=== PATIENT | male | born 1980 | race Caucasian/White ===

== ENCOUNTER 2017-09-26 10:19 | Inpatient (IN) | payer OTHER ==
[~2017-09-26] VITALS: Ht 177.8 cm; Wt 95.3 kg
[2017-09-26] MEDS ORDERED: KETOROLAC TROMETHAMINE 30 MG/ML VIAL IV STA (10:24)
[2017-09-26] MEDS ORDERED: SODIUM CHLORIDE 0.9% 1000ML 1,000 ML IV ONE (10:30)
[2017-09-26] MEDS ORDERED: DICYCLOMINE HCL 20 MG/2 ML VIAL IM ONE (10:30)
--- NOTE | 2017-09-26 11:13 | Diagnostic Imaging Report ---
PROCEDURE: CT ABDOMEN AND PELVIS WITHOUT CONTRAST TECHNIQUE: The abdomen and pelvis were scanned utilizing a multidetector helical scanner from the diaphragm to the lesser trochanter after the oral administration of water. No intravenous contrast was administered per renal stone protocol. Coronal and sagittal multiplanar reformations were obtained. COMPARISON: None. INDICATIONS: kidney stone FINDINGS: ABSENCE OF INTRAVENOUS CONTRAST DECREASES SENSITIVITY FOR DETECTION OF FOCAL LESIONS AND VASCULAR PATHOLOGY. LOWER THORAX: Subsegmental atelectasis in the dependent portions of the lower lobes. No pleural or pericardial effusion.. HEPATOBILIARY: No focal hepatic lesions. No intrahepatic biliary ductal dilatation. The gallbladder is unremarkable. SPLEEN: No splenomegaly. PANCREAS: No focal masses or ductal dilatation. ADRENALS: No adrenal nodules. KIDNEYS/URETERS: Innumerable bilateral small nonobstructing renal calculi measuring up to 4 mm in the left lower pole and 6 mm in the interpolar right kidney. No hydronephrosis. No gross renal mass lesions though evaluation is limited without intravenous contrast the PELVIC ORGANS/BLADDER: 2 mm and 5 mm calculi within the dependent portion of the urinary bladder (series 3 image 163). 8-9 mm calcification within the central prostate (series 3 image 184). PERITONEUM / RETROPERITONEUM: No ascites. No pneumoperitoneum. LYMPH NODES: No pelvic sidewall, retroperitoneal, or mesenteric lymphadenopathy. VESSELS: Limited evaluation without intravenous contrast. The abdominal aorta is non-aneurysmal. GI TRACT: The large bowel shows no evidence of distention or wall thickening. There are a few diverticula scattered along the sigmoid colon without wall thickening or adjacent inflammatory change. The appendix is normal. There is no small bowel dilatation to suggest obstruction. BONES AND SOFT TISSUES: No focal soft tissue abnormalities. The no osseous destructive lesions. IMPRESSION: 8-9 mm calculus within the central aspect of the prostate likely lies within the prostatic urethra given the reported clinical history of penile pain with attempts at urination. Additional 2 and 5 mm calculi within the dependent portion of the urinary bladder. Multiple bilateral nonobstructing renal calculi measuring up to 4 mm on the left and 6 mm on the right. Dictated by: Rebel Gamble M.D. on 09/26/2017 at 11:18 Electronically approved by: Rebel Gamble M.D. on 09/26/2017 at 11:18
[2017-09-26 11:18] LABS: BASOPHILS % 0.4 % (0.0-1.0); EOSINOPHILS % 0.2 % (0.0-6.0); HEMOGLOBIN 19.6 g/dL (14.0-18.0); MEAN CORPUSCULAR HEMOGLOBIN 30.2 pg (28-32); MEAN CORPUSCULAR HGB CONC 34.4 g/dL (31-35); MONOCYTES # (AUTO) 0.5 (0.2-0.8); MONOCYTES % 5.2 % (4.4-11.3); NEUTROPHILS # (AUTO) 8.4 (2.1-6.9); NEUTROPHILS % 83.6 % (38.7-80.0); PLATELET COUNT 194 x10e3/uL (140-360); RED BLOOD COUNT 6.48 x10e6/uL (4.3-5.7); RED CELL DISTRIBUTION WIDTH 13.3 % (11.7-14.4)
[2017-09-26 11:39] LABS: ALBUMIN 4.2 g/dL (3.5-5.0); ALBUMIN/GLOBULIN RATIO 1.3 (0.8-2.0); CALCIUM 9.4 mg/dL (8.4-10.2); CREATININE, SERUM 1.32 mg/dL (0.72-1.25)
[2017-09-26] MEDS ORDERED: MORPHINE SULFATE 2 MG/ML SYR IV PRN (13:00)
[2017-09-26] MEDS ORDERED: ONDANSETRON HCL INJ 2 MG/ML VIAL IV PRN (13:00)
[2017-09-26] MEDS ORDERED: ONDANSETRON HCL INJ 2 MG/ML VIAL ONE (14:32)
[2017-09-26] MEDS ORDERED: LIDOCAINE HCL 2% LOCAL INJ 5 ML SDV VIAL INJ ONE (14:32)
[2017-09-26] MEDS ORDERED: DEXAMETHASONE SOD PHOS INJ 4 MG/ML VIAL ONE (14:32)
[2017-09-26] MEDS ORDERED: DESFLURANE 240 ML BTL INH ONE (14:32)
[2017-09-26] MEDS ORDERED: CEFTRIAXONE SOD 1 GM VIAL ONE (14:32)
[2017-09-26] MEDS ORDERED: PROPOFOL IV EMULSION 10 MG/ML 20 ML VIAL ONE (14:32)
[2017-09-26] MEDS: MORPHINE SULFATE INJ 4 MG/ML INJ IV PRN ×2 (14:42→23:54)
[2017-09-26] MEDS ORDERED: MIDAZOLAM HCL 2 MG/2 ML VIAL ONE (15:59)
[2017-09-26] MEDS ORDERED: FENTANYL CITRATE/PF 100MCG/2 ML INJ ONE (15:59)
[2017-09-26] MEDS: SODIUM CHLORIDE 0.9% 1000ML 1,000 ML IV SCH ×2 (18:53→23:10)
[2017-09-26] MEDS ORDERED: IOPAMIDOL 300MG/ML 50ML INFUS..BTL IV ONE (20:24)
[2017-09-26 22:36] VITALS: BP 147/87
[2017-09-26 23:17] VITALS: BP 151/91
[2017-09-27 04:00] VITALS: BP 152/73
[2017-09-27] MEDS: SODIUM CHLORIDE 0.9% 1000ML 1,000 ML IV SCH ×2 (05:02→21:30)
[2017-09-27 05:50] LABS: BASOPHILS % 0.1 % (0.0-1.0); HEMATOCRIT 53.7 % (38.2-49.6); HEMOGLOBIN 18.4 g/dL (14.0-18.0); LYMPHOCYTES # (AUTO) 0.7 (1.0-3.2); LYMPHOCYTES % 9.1 % (18.0-39.1); MEAN CORPUSCULAR HEMOGLOBIN 30.2 pg (28-32); MEAN CORPUSCULAR HGB CONC 34.3 g/dL (31-35); MONOCYTES # (AUTO) 0.4 (0.2-0.8); MONOCYTES % 4.6 % (4.4-11.3); NEUTROPHILS # (AUTO) 6.7 (2.1-6.9); NEUTROPHILS % 85.8 % (38.7-80.0); PLATELET COUNT 188 x10e3/uL (140-360); RED CELL DISTRIBUTION WIDTH 13.1 % (11.7-14.4)
[2017-09-27] MEDS: MORPHINE SULFATE INJ 4 MG/ML INJ IV PRN (06:08)
[2017-09-27 06:16] LABS: ANION GAP 16.3 mmol/L (8-16); BLOOD UREA NITROGEN 14 mg/dL (7-26); BUN/CREATININE RATIO 12 (6-25); CALCIUM 8.8 mg/dL (8.4-10.2); CARBON DIOXIDE 23 mmol/L (22-29); CHLORIDE 104 mmol/L (98-107); CREATININE, SERUM 1.14 mg/dL (0.72-1.25); EST GLOMERULAR FILTRATION RATE > 60 ML/MIN (60-); GLUCOSE 114 mg/dL (74-118); POTASSIUM 4.3 mmol/L (3.5-5.1); SODIUM 139 mmol/L (136-145)
[2017-09-27 07:55] VITALS: BP 152/73
[2017-09-27 08:06] VITALS: BP 141/71
--- NOTE | 2017-09-27 09:56 | History and Physical ---
CHIEF COMPLAINT: Recurrent kidney stone with obstruction. HISTORY: Patient is a 37-year-old male with history of calcium oxalate stone. The patient came to the emergency room with penile pain. The patient is now passing a huge stone. He is obstructed, however. He was not able to urinate as well. The patient is a patient to Dr. Flaquito Barrett. PAST MEDICAL HISTORY: Recurrent kidney stone. PAST SURGICAL HISTORY: Stone management. SOCIAL HISTORY: Patient does not smoke or use alcohol. No recreational drugs. ALLERGIES: NO KNOWN ALLERGIES. HOME MEDICATIONS: None. PHYSICAL EXAMINATION VITAL SIGNS: Temperature is 98, blood pressure 141/71, pulse rate 77, and respirations 18. GENERAL: The patient is not acute distress. He is awake. HEENT: Normocephalic, atraumatic, anicteric. NECK: Supple grossly. PULMONARY: Diminished breath sounds. CARDIOVASCULAR: S1 and S2. Regular rate and rhythm. ABDOMEN: Soft, unremarkable. EXTREMITIES: No cyanosis or edema. NEURO: No gross focal deficit. LABORATORY: Sodium is 139, potassium 4.3, chloride 104, bicarb 23, BUN 14, creatinine 1.1, and glucose is 114. WBC 7.7, hemoglobin is 18.4, hematocrit 53.7, and platelets are 188,000. IMPRESSION: Recurrent kidney stone with obstruction. PLAN: Stone management. Dr. Flaquito Barrett saw the patient. Continue with antibiotics, IV fluids, and pain control. Job#: [id number] CF
[2017-09-27 11:33] LABS: CLARITY,URINE SL CLOUDY (CLEAR); COLOR,URINE YELLOW (YELLOW); KETONES,URINE TRACE (NEGATIVE); LEUKOCYTE ESTERASE ,URINE TRACE (NEGATIVE); NITRITE,URINE NEGATIVE (NEGATIVE)
[2017-09-27 11:34] LABS: BILIRUBIN,URINE NEGATIVE (NEGATIVE); PROTEIN,URINE DIPSTICK NEGATIVE (NEGATIVE); URINE UROBILINOGEN 0.2 mg/dL (0.2 - 1)
[2017-09-27 11:48] LABS: BACTERIA,URINE FEW /HPF; EPITHELIAL CELLS,URINE FEW /LPF
[2017-09-27 12:48] VITALS: BP 138/78
[2017-09-27 16:35] VITALS: BP 141/81
[2017-09-27 20:00] VITALS: BP 158/98
[2017-09-28] VITALS: BP 147/93
[2017-09-28 03:56] VITALS: BP 147/93
[2017-09-28 04:00] VITALS: BP 156/102
[2017-09-28 08:00] VITALS: BP 156/102
[2017-09-28 08:03] VITALS: BP 137/88
[2017-09-28 12:00] VITALS: BP 161/99
[2017-09-28] MEDS ORDERED: BACTRIM DS TAB1 EACH PO (12:41)
[2017-09-28] MEDS ORDERED: TYLENOL WITH C1 EACH PO (12:41)
[2017-11-01] MEDS ORDERED: HYDROCHLOROTHIA25 MG PO (10:10)
--- NOTE | 2017-11-10 18:11 | Discharge Summary ---
FINAL DIAGNOSES 1. Urinary bladder stone and kidney stone. 2. Status post cystolithotripsy done by Dr. Flaquito Barrett for stone management. SUMMARY: Patient is a pleasant 37-year-old male with bilateral kidney stone. The patient is status post ureteral lithotripsy of the stone. He did better. His creatinine is slightly elevated, but much improved with IV fluid rehydration. Patient was stable. Pain controlled. Patient was slightly dehydrated overall, but with IV fluid rehydration, he did better. His pain better controlled. Mills catheter was subsequently discontinued. The patient voided. He will follow up with Dr. Flaquito Barrett as an outpatient. Please review Dr. Flaquito Barrett's prescription plan for the patient. Job#: [id number] ADOLFO
--- NOTE | 2017-11-21 15:02 | Operative Report ---
DATE OF PROCEDURE: September 26, 2017 PREOPERATIVE DIAGNOSES 1. Obstructing bladder stone. 2. Acute renal failure. POSTOPERATIVE DIAGNOSES 1. Obstructing bladder stone. 2. Acute renal failure. PROCEDURES PERFORMED 1. Cystourethroscopy with cystolitholapaxy of a large bladder stone (separate procedure performed for the diagnosis of bladder stone that was done with a holmium laser). 2. Cystourethroscopy with bilateral ureteral catheterization and retrograde ureteropyelography (separate procedure performed for the acute renal failure). 3. Interpretation of retrograde ureteropyelography. 4. Supervision of fluoroscopy. No radiologist present. ANESTHESIA: General. COMPLICATIONS: None. CLINICAL SUMMARY: Cody Brito is a 37-year-old man who has failed to follow up for a number of years. He is a recurrent stone former. The patient has been able to successfully pass rather significantly sized stones. The patient, however, in this case had difficulty urinating. He presented to the emergency room where he was found to have nephrolithiasis in addition to a bladder stone that is stuck and preventing him from urinating. He is brought emergently to the operating room for the above procedures. He is aware of the risks of bleeding, infection, injury to adjacent structures, need for additional procedures and elected to proceed. OPERATIVE PROCEDURE IN DETAIL: Informed consent was verified. Cody Brito was properly identified, taken to the operating room and placed on the cystoscopy table in the supine position. Anesthesia was uneventfully begun. The patient was then carefully and gently repositioned in dorsal lithotomy position with all pressure points well padded. His genitalia were prepared and draped in the usual sterile fashion. The 22.5-[place] cystourethroscope sheath with visual obturator in place was atraumatically inserted in the patient's urethra. It was guided down the unremarkable urethra, through a normal sphincteric region into the prostate bed. The prostate bed was blocked by a rather significant, large, multispiculated bladder stone. The stone was pushed back into the bladder, and we performed holmium laser lithotripsy as we broke it into multiple smaller stones and then we evacuated it. The prostatic urethra was rather significantly inflamed as a result of having this bladder stone stuck within it. A ureteral catheter was used to cannulate each ureter, and retrograde ureteropyelograms were performed. Interpretation of retrograde ureteropyelography: Contrast was instilled in retrograde fashion bilaterally. There was no hydronephrosis. Unobstructed drainage was observed bilaterally fluoroscopically. There were multiple small stones present bilaterally corresponding to the stones noted on the CT scan. The smallest of the stones could not be well visualized. The patient's bladder was drained. The patient was uneventfully reversed from anesthesia and taken to the recovery room in stable condition. There were no complications to the procedure. The patient tolerated the procedure well. Estimated blood loss was minimal. We will follow the patient up as an inpatient and then eventually bring the patient to the operating room electively for management of his nephrolithiasis. Job#: [id number]
--- OUTSIDE RECORDS SUMMARY | 2017-11-23 00:02 | XMS REPORT ---
[facility] Address Unknown Phone Unavailable Care Team Providers Care Fisher Eel Name Role Phone MANDIE MCGUIRE Unavailable Unavailable HA HARO Unavailable Unavailable Problems This patient has no known problems. Allergies, Adverse Reactions, Alerts This patient has no known allergies or adverse reactions. Medications This patient has no known medications. Results Test Description Test Time Test Comments Text Results Atomic Results Result Comments ABDOMEN-1VIEW (KUB) 2017-11-03 10:18:00 [place] [address] Patient Name: REHANA SCHNEIDER MR #: [id number] : 1980 Age/Sex: 37/M Req #: [id number] Adm Physician: Ordered by: MANDIE MCGUIRE MD Report #: [id number] Location: OR Room/Bed: Procedure: [id number] DX/ABDOMEN-1VIEW (KUB) Exam Date: 11/03/17 Exam Time: 0940 REPORT STATUS: Signed PROCEDURE: X-RAY ABDOMEN - KUB COMPARISON: CT Abdomen/Pelvis 09/26/17. INDICATIONS: PREOPERATIVE XRAY FOR KIDNEY STONE SURGERY FINDINGS: Multiple bilateral punctate renal stones are noted, better characterized on CT from 09/26/17, largest measuring up to 6 mm in the right upper kidney and 4 mm in the left lower kidney. No stones are noted overlying the expected location of the ureters. Pelvic phleboliths are noted. There is a non-obstructed bowel-gas pattern. There are no acute osseous abnormalities. The lung bases are clear. CONCLUSION: Bilateral renal stones, measuring up to 6 mm on the right and 4 mm on the left. Dictated by: LISE CASTELLANOS M.D. on at 10:18 Electronically approved by: LISE CASTELLANOS M.D. on 2017 at 10:18 Dictated By: LISE CASTELLANOS MD [id number] Transcribed By: ROCKY on 11/03/17 1018 COPY TO: MANDIE MCGUIRE MD CT ABDOMEN/PELVIS WO 2017-09-26 11:18:00 [place] [address] Patient Name: REHANA SCHNEIDER MR #: [id number] : 1980 Age/Sex: 37/M Req #: [id number] Adm Physician: Ordered by: HA HARO MD Report #: [id number] Location: ER Room/Bed: __ Procedure: [id number] CT/CT ABDOMEN/PELVIS WO Exam Date: 09/26/17 Exam Time: 1045 REPORT STATUS: Signed PROCEDURE: CT ABDOMEN AND PELVIS WITHOUT CONTRAST TECHNIQUE: The abdomen and pelvis were scanned utilizing a multidetector helical scanner from the diaphragm to the lesser trochanter after the oral administration of water. No intravenous contrast was administered per renal stone protocol. Coronal and sagittal multiplanar reformations were obtained. COMPARISON: None. INDICATIONS: kidney stone FINDINGS: ABSENCE OF INTRAVENOUS CONTRAST DECREASES SENSITIVITY FOR DETECTION OF FOCAL LESIONS AND VASCULAR PATHOLOGY. LOWER THORAX: Subsegmental atelectasis in the dependent portions of the lower lobes. No pleural or pericardial effusion.. HEPATOBILIARY: No focal hepatic lesions. No intrahepatic biliary ductal dilatation. The gallbladder is unremarkable. SPLEEN: No splenomegaly. PANCREAS: No focal masses or ductal dilatation. ADRENALS: No adrenal nodules. KIDNEYS/URETERS: Innumerable bilateral small nonobstructing renal calculi measuring up to 4 mm in the left lower pole and 6 mm in the interpolar right kidney. No hydronephrosis. No gross renal mass lesions though evaluation is limited without intravenous contrast the PELVIC ORGANS/ BLADDER: 2 mm and 5 mm calculi within the dependent portion of the urinary bladder (series 3 image 163). 8-9 mm calcification within the central prostate (series 3 image 184). PERITONEUM / RETROPERITONEUM: No ascites. No pneumoperitoneum. LYMPH NODES: No pelvic sidewall, retroperitoneal, or mesenteric lymphadenopathy. VESSELS: Limited evaluation without intravenous contrast. The abdominal aorta is non-aneurysmal. GI TRACT: The large bowel shows no evidence of distention or wall thickening. There are a few diverticula scattered along the sigmoid colon without wall thickening or adjacent inflammatory change. The appendix is normal. There is no small bowel dilatation to suggest obstruction. BONES AND SOFT TISSUES: No focal soft tissue abnormalities. The no osseous destructive lesions. IMPRESSION: 8-9 mm calculus within the central aspect of the prostate likely lies within the prostatic urethra given the reported clinical history of penile pain with attempts at urination. Additional 2 and 5 mm calculi within the dependent portion of the urinary bladder. Multiple bilateral nonobstructing renal calculi measuring up to 4 mm on the left and 6 mm on the right. Dictated by: Dev Kelly M.D. on 2017 at 11:18 Electronically approved by: Dev Kelly M.D. on 09/26/2017 at 11:18 Dictated By: DEV KELLY MD [id number] Transcribed By: ROCKY on 09/26/17 1118 COPY TO: HA HARO MD
== END 2017-09-28 13:42 | disposition home or self-care (01) | DRG 694 ==
LOC: ER 10:19 → ERHOLD 12:56 → MED/SURG3 19:37
PROVIDERS: ADMIT Internal Medicine; ATTEND Internal Medicine
PROC: 0TCB8ZZ Extirpation of Matter from Bladder, Via Natural or Artificial Opening Endoscopic (ICD-10-PCS; principal; 2017-09-26 21:00)
DX: N20.2 Calculus of kidney with calculus of ureter (principal); N17.9 Acute kidney failure, unspecified; R33.9 Retention of urine, unspecified; D75.1 Secondary polycythemia
CPT/HCPCS: 36415; 74176; 74420; 80048; 80053; 81001; 83970; 84550; 85025; 87086; 88300; 96361; 99284; J0500; J0696; J1100; J1885; J2001; J2250; J2270; J2405; J7030

== ENCOUNTER → 2017-11-03 | Day surgery (SDC) | payer OTHER ==
[~2017-11-03] MED LIST: BACTRIM DS TAB1 EACH PO; CEFTRIAXONE SOD 1 GM VIAL ONE; DEXAMETHASONE SOD PHOS INJ 4 MG/ML VIAL ONE; FENTANYL CITRATE/PF 100MCG/2 ML INJ ONE; GLYCOPYRROLATE INJ 1MG/ 5 ML SYR ONE; HYDROCHLOROTHIA25 MG PO; LIDOCAINE HCL 2% LOCAL INJ 5 ML SDV VIAL INJ ONE; MIDAZOLAM HCL 2 MG/2 ML VIAL ONE; ONDANSETRON HCL INJ 2 MG/ML VIAL ONE; POTASSIUM CITR10 MEQ PO; PROPOFOL IV EMULSION 10 MG/ML 20 ML VIAL ONE; SEVOFLURANE INHAL SOLN 250 ML PEN BTL ONE; TYLENOL WITH C1 EACH PO
[2017-11-03 12:30] VITALS: BP 134/89
--- NOTE | 2017-11-07 12:18 | Diagnostic Imaging Report ---
PROCEDURE:X-RAY ABDOMEN - KUB COMPARISON:CT Abdomen/Pelvis 09/26/17. INDICATIONS:PREOPERATIVE XRAY FOR KIDNEY STONE SURGERY FINDINGS: Multiple bilateral punctate renal stones are noted, better characterized on CT from 09/26/17, largest measuring up to 6 mm in the right upper kidney and 4 mm in the left lower kidney. No stones are noted overlying the expected location of the ureters. Pelvic phleboliths are noted. There is a non-obstructed bowel-gas pattern. There are no acute osseous abnormalities. The lung bases are clear. CONCLUSION: Bilateral renal stones, measuring up to 6 mm on the right and 4 mm on the left. Dictated by: LISE CASTELLANOS M.D. on 11/03/2017 at 10:18 Electronically approved by: LISE CASTELLANOS M.D. on 11/03/2017 at 10:18
--- OUTSIDE RECORDS SUMMARY | 2017-11-23 07:58 | XMS REPORT | Continuity of Care Document ---
Author Author [facility] Organization [facility] Address [address] [place] [address] Phone Unavailable Care Team Providers Care Upholstery Tech Name Role Phone MANDIE MCGUIRE MD PCP Insurance Providers Guarantor Cody Schneider Address [address] [place] [address] Email [email or web address] Payer Miscellaneous Indemnity Policy Number [id number] Subscriber's Name Cody Schneider Relationship 18 Self / Same As Patient Effective Date 16 Advance Directives Directive Response Recorded Date/Time Does the patient have an advance directive? No 09/26/17 11:12pm If yes, is advance directive on file with [facility]? No 09/26/17 11:12pm If not on file with [facility] will patient provide a copy? No 09/26/17 11:12pm Do you have a Directive to Physician? No 09/26/17 11:30am Do you have a Medical Power of Kennel Helper? No 09/26/17 11:30am Do you have an out of hospital Do Not Resuscitate Order? No 09/26/17 11:30am Do you have any special needs we should be aware of? U 09/26/17 11:31am Do you have a support person here with you today? No 09/26/17 11:31am Did patient receive Notice of Privacy Practices? Yes 09/26/17 11:31am Did patient receive patient rights and responsibilities? Yes 09/26/17 11:31am Problems Medical Problem Onset Date Status Recurrent kidney stones Unknown Medications Current Home Medications Medication Dose Units Route Directions Days Qty Instructions Start Date Acetaminophen With Codeine (Tylenol With Codeine #3 Tablet) 1 Each Tablet 300 Mg Oral Every 4 Hours Sulfamethoxazole/Trimethoprim (Bactrim Ds Tablet) 1 Each Tablet 1 Tab Oral Twice A Day 60 Tab Social History Smoking Status Start Date Stop Date Never Smoker Hospital Discharge Instructions No hospital discharge instruction information available. Plan of Care Discharge Date 09/28/17 1:42pm Disposition HOME, SELF-CARE Instructions/Education Provided Kidney Stones Prescriptions See Medication Section Additional Instructions/Education REGULAR DIET ACTIVITIES TOLERATED FOLLOW UP WITH DR. UGALDE IN 1-2 WEEKS Functional Status Query Response Date Recorded Assistive Devices None September 26, 2017 11:17pm Ambulation Ability Independent September 26, 2017 11:17pm Toileting Ability Minimum Assistance September 28, 2017 9:00am Allergies, Adverse Reactions, Alerts No known allergies. Immunizations No immunization information available. Vital Signs Acute Vital Signs Vital Response Date/Time Temperature (Fahrenheit) 98.0 degrees F (97.6 - 99.5) 09/28/2017 12:00pm Pulse Pulse Rate (adult) 81 bpm (60 - 90) 09/28/2017 12:00pm Respiratory Rate 20 bpm (12 - 24) 09/28/2017 12:00pm Blood Pressure 161/99 mm Hg 09/28/2017 12:00pm Height 5 ft 10 in 09/26/2017 10:24am Weight 210 lb 09/26/2017 10:24am Body Mass Index 30.1 kg/m^2 09/26/2017 11:12pm Results Laboratory Results Test Name Result Units Flags Reference Collection Date/Time Result Date/ Time Comments White Blood Count 7.77 x10e3/uL 4.8-10.8 09/27/2017 5:14am 09/27/2017 5 :59am Red Blood Count 6.10 x10e6/uL H 4.3-5.7 09/27/2017 5:1409/27/2017 5: 59am Hemoglobin 18.4 g/dL H 14.0-18.0 09/27/2017 5:09/27/2017 5:59am Hematocrit 53.7 % H 38.2-49.6 09/27/2017 5:09/27/2017 5:59am Mean Corpuscular Volume 88.0 fL 81-99 09/27/2017 5:09/27/2017 5: 59am Mean Corpuscular Hemoglobin 30.2 pg 28-32 09/27/2017 5:09/27/2017 5:59am Mean Corpuscular Hemoglobin Concent 34.3 g/dL 31-35 09/27/2017 5:09/27/2017 5:59am Red Cell Distribution Width 13.1 % 11.7-14.4 09/27/2017 5:2017 5:59am Platelet Count 188 x10e3/uL 140-360 09/27/2017 5:09/27/2017 5: 59am Neutrophils (%) (Auto) 85.8 % H 38.7-80.0 09/27/2017 5:09/27/2017 5 :59am Lymphocytes (%) (Auto) 9.1 % L 18.0-39.1 09/27/2017 5:09/27/2017 5: 59am Monocytes (%) (Auto) 4.6 % 4.4-11.3 09/27/2017 5:09/27/2017 5: 59am Eosinophils (%) (Auto) 0.0 % 0.0-6.0 09/27/2017 5:09/27/2017 5: 59am Basophils (%) (Auto) 0.1 % 0.0-1.0 09/27/2017 5:09/27/2017 5:59am IM GRANULOCYTES % 0.4 % 0.0-1.0 09/27/2017 5:1409/27/2017 5:59am Neutrophils # (Auto) 6.7 2.1-6.9 09/27/2017 5:09/27/2017 5:59am Lymphocytes # (Auto) 0.7 L 1.0-3.2 09/27/2017 5:14am 09/27/2017 5: 59am Monocytes # (Auto) 0.4 0.2-0.8 09/27/2017 5:14am 09/27/2017 5:59am Eosinophils # (Auto) 0.0 0.0-0.4 09/27/2017 5:14am 09/27/2017 5:59am Basophils # (Auto) 0.0 0.0-0.1 09/27/2017 5:14am 09/27/2017 5:59am Absolute Immature Granulocyte (auto 0.03 x10e3/uL 0-0.1 09/27/2017 5: 14am 09/27/2017 5:59am Urine Color YELLOW YELLOW 09/27/2017 11:00am 09/27/2017 11:34am Urine Clarity SL CLOUDY H CLEAR 09/27/2017 11:00am 09/27/2017 11:34am Urine Specific [place] 1.015 1.010-1.025 09/27/2017 11:00am 2017 11:34am Urine pH 7 5 - 7 09/27/2017 11:00am 09/27/2017 11:34am Urine Leukocyte Esterase TRACE H NEGATIVE 09/27/2017 11:00am 2017 11:34am Urine Nitrite NEGATIVE NEGATIVE 09/27/2017 11:00am 09/27/2017 11: 34am Urine Protein NEGATIVE NEGATIVE 09/27/2017 11:00am 09/27/2017 11: 34am Urine Glucose (UA) NEGATIVE NEGATIVE 09/27/2017 11:00am 09/27/2017 11 :34am Urine Ketones TRACE H NEGATIVE 09/27/2017 11:00am 09/27/2017 11:34am Urine Urobilinogen 0.2 mg/dL 0.2 - 1 09/27/2017 11:00am 09/27/2017 11: 34am Urine Bilirubin NEGATIVE NEGATIVE 09/27/2017 11:00am 09/27/2017 11: 34am Urine Blood 3+ H NEGATIVE 09/27/2017 11:00am 09/27/2017 11:34am Urine WBC 11-20 /HPF H 0-5 09/27/2017 11:00am 09/27/2017 11:48am Urine RBC 11-20 /HPF H 0-5 09/27/2017 11:00am 09/27/2017 11:48am Urine Bacteria FEW /HPF NONE 09/27/2017 11:00am 09/27/2017 11:48am Urine Epithelial Cells FEW /LPF NONE 09/27/2017 11:00am 09/27/2017 11: 48am Sodium Level 139 mmol/L 136-145 09/27/2017 5:14am 09/27/2017 6:16am Potassium Level 4.3 mmol/L 3.5-5.1 09/27/2017 5:14am 09/27/2017 6:16am Chloride Level 104 mmol/L 98-107 09/27/2017 5:14am 09/27/2017 6:16am Carbon Dioxide Level 23 mmol/L 22-29 09/27/2017 5:1409/27/2017 6: 16am Anion Gap 16.3 mmol/L H 8-16 09/27/2017 5:14am 09/27/2017 6:16am Blood Urea Nitrogen 14 mg/dL 7-26 09/27/2017 5:1409/27/2017 6:16am Creatinine 1.14 mg/dL 0.72-1.25 09/27/2017 5:14am 09/27/2017 6:16am BUN/Creatinine Ratio 12 6-25 09/27/2017 5:1409/27/2017 6:16am Estimat Glomerular Filtration Rate > 60 ML/MIN 60- 09/27/2017 5:14am 6:16am Ranges were taken from the National Kidney Disease Education Program and the National Kidney Foundation literature. Reference ranges: 60 or greater: Normal 16-59 (for 3 consecutive months): Chronic kidney disease 15 or less: Kidney failure Glucose Level 114 mg/dL 74-118 09/27/2017 5:14am 09/27/2017 6:16am Calcium Level 8.8 mg/dL 8.4-10.2 09/27/2017 5:1409/27/2017 6:16am Uric Acid 5.7 mg/dL 4.8-8.0 09/27/2017 5:14am 09/27/2017 6:16am Total Bilirubin 0.6 mg/dL 0.2-1.2 09/26/2017 10:37am 09/26/2017 11: 40am Aspartate Amino Transf (AST/SGOT) 24 IU/L 5-34 09/26/2017 10:37am 09/26 11:40am Alanine Aminotransferase (ALT/SGPT) 35 IU/L 0-55 09/26/2017 10:37am 08/2017 11:40am Total Protein 7.5 g/dL 6.5-8.1 09/26/2017 10:37am 09/26/2017 11:40am Albumin 4.2 g/dL 3.5-5.0 09/26/2017 10:37am 09/26/2017 11:40am Globulin 3.3 g/dL 2.3-3.5 09/26/2017 10:37am 09/26/2017 11:40am Albumin/Globulin Ratio 1.3 0.8-2.0 09/26/2017 10:37am 09/26/2017 11: 40am Alkaline Phosphatase 150 IU/L 40-150 09/26/2017 10:37am 09/26/2017 11: 40am Parathyroid Hormone 21 pg/mL 15-65 09/27/2017 5:14am 09/28/2017 5:14am Calcium (Send out) 8.8 mg/dL 8.7-10.2 09/27/2017 5:14am 09/28/2017 5: 14am Parathyroid Hormone Interpretation Comment . 09/27/2017 5:14am 2017 5:14am Interpretation Intact PTH Calcium (pg/mL) (mg/dL) Normal 15 - 65 8.6 - 10.2 Primary Hyperparathyroidism >65 >10.2 Secondary Hyperparathyroidism >65 <10.2 Non-Parathyroid Hypercalcemia <65 >10.2 Hypoparathyroidism <15 < 8.6 Non-Parathyroid Hypocalcemia 15 - 65 < 8.6 Performed at: - [facility] [id number] Mutual [employer] Agent: Jonel Maravilla MD, Phone: [phone] Performed at: - [facility] [id number] [employer] Agent: Yaakov Power MD, Phone: [phone] Procedures Procedure Status Date Provider(s) Cystoscopy with retrograde pyelography Completed 09/26/[address] of abdomen and pelvis without contrast Active 09/26/17 HA HARO MD Encounters Encounter Location Arrival/Admit Date Discharge/Depart Date Attending Provider Discharged Inpatient [facility] 09/26/17 12:56pm 1:42pm HODAN MACARIO MD
--- NOTE | 2018-01-01 07:27 | Operative Report ---
DATE OF PROCEDURE: November 03, 2017 PREOPERATIVE DIAGNOSIS: Left nephrolithiasis. POSTOPERATIVE DIAGNOSIS: Left nephrolithiasis. PROCEDURES PERFORMED 1. Staged left-sided extracorporal shockwave lithotripsy. 2. Supervision of fluoroscopy. No radiologist present. ANESTHESIA: General. COMPLICATIONS: None. CLINICAL SUMMARY: Cody Brito is a 37-year-old man with recurrent bilateral nephrolithiasis. He is brought for a unilateral ESWL. He is aware of the risks of bleeding, infection, injury to adjacent structures, need for additional procedures, and elected to proceed. OPERATIVE PROCEDURE IN DETAIL: Informed consent was verified. Cody Brito was properly identified and taken to the operating room and placed on the lithotripsy table in the supine position. Anesthesia was uneventfully begun. The patient's left nephrolithiasis was localized with biplanar fluoroscopy. A total of 3000 shocks were delivered and distributed between the 8-mm stone in the lower kushal and a 5-mm stone in the upper kushal. During this procedure, gaiting was utilized due to arrhythmia noted. The gaiting corrected any issues. Once 3000 shocks were delivered, the patient was uneventfully reversed from anesthesia and taken to the recovery room in stable condition. There were no complications to the procedure. He tolerated the procedure well. Explicit postop instructions were given. Will follow the patient up by bringing him back to the operating room for a another ESWL. Job#: [id number] THOMAS
== END | disposition home or self-care (01) ==
LOC: OR 08:15
PROVIDERS: ATTEND Urology
DX: N20.0 Calculus of kidney (principal); Z87.440 Personal history of urinary (tract) infections; I49.9 Cardiac arrhythmia, unspecified; I10 Essential (primary) hypertension; D75.1 Secondary polycythemia; E29.1 Testicular hypofunction; Z68.30 Body mass index [BMI] 30.0-30.9, adult; Z84.1 Family history of disorders of kidney and ureter
CPT/HCPCS: 36415; 50590; 74018; 83970; 84550; J0696; J1100; J2001; J2250; J2405; J3490

== ENCOUNTER → 2018-01-19 | Day surgery (SDC) | payer OTHER ==
[~2018-01-19] MED LIST changes: +ATROPINE SULFATE 1 MG/ML VIAL ONE; +BELLADONNA/OPIUM 60 MG SUPP PR ONE; +IOPAMIDOL 610MG/1ML 300 MG/ML VIAL IV ONE; -LIDOCAINE HCL 2% LOCAL INJ 5 ML SDV VIAL INJ ONE
--- NOTE | 2018-01-19 13:42 | Diagnostic Imaging Report ---
Exam: Abdominal film Clinical History: Preoperative study for urological procedure Comparison: None. DISCUSSION: Scattered calcifications are noted projecting over both renal shadows, to a maximum of 4 mm in diameter projecting over the left lower pole and 3 mm in diameter projecting over the right interpolar region. Multiple round pelvic calcifications are also noted, likely to represent phleboliths. Bowel gas pattern is nonobstructive. Regional skeletal structures are intact. IMPRESSION: Scattered bilateral renal calculi as above. Signed by: Dr. Rebel Gamble M.D. on 01/19/2018 1:39 PM
[2018-01-19 14:39] LABS: ANION GAP 14.1 mmol/L (8-16); BLOOD UREA NITROGEN 18 mg/dL (7-26); BUN/CREATININE RATIO 14 (6-25); CALCIUM 9.6 mg/dL (8.4-10.2); CARBON DIOXIDE 27 mmol/L (22-29); CHLORIDE 102 mmol/L (98-107); CREATININE, SERUM 1.29 mg/dL (0.72-1.25); EST GLOMERULAR FILTRATION RATE > 60 ML/MIN (60-); GLUCOSE 92 mg/dL (74-118); POTASSIUM 3.1 mmol/L (3.5-5.1); SODIUM 140 mmol/L (136-145)
[2018-01-19 16:30] VITALS: BP 134/95
--- NOTE | 2018-01-21 23:15 | Operative Report ---
DATE OF PROCEDURE: January 19, 2018 PREOPERATIVE DIAGNOSES: 1. Bilateral nephrolithiasis. 2. Possible left renal colic. POSTOPERATIVE DIAGNOSES: 1. Bilateral nephrolithiasis. 2. Possible left renal colic. OPERATIONS PERFORMED: Note these are all staged procedures as part of a multistage, multistep process of managing the patient's urolithiasis. 1. Left-sided extracorporeal shock wave lithotripsy (separate procedure performed for the left nephrolithiasis). 2. Cystourethroscopy with bilateral ureteral catheterization and retrograde ureteropyelography (separate procedure performed to rule out any renal colic etiology involving ureteral obstruction). 3. Interpretation of retrograde ureteropyelography. 4. Supervision of fluoroscopy, no radiologist present. ANESTHESIA: General. COMPLICATIONS: None. CLINICAL SUMMARY: Cody Brito is a 37-year-old man with recurrent urolithiasis. He has undergone left ESWL and is brought to the operating room today to determine whether to perform ESWL on the left side again versus proceed with treating the right. The patient has had some left-sided flank pains and is concerned that he is possibly passing a stone. He is brought to the operating room for the above procedures. He is aware of the risks of bleeding, infection, injury to adjacent structures, need for additional procedures, and elected to proceed. OPERATIVE PROCEDURE IN DETAIL: Informed consent was verified. Cody Brito was properly identified, taken to the operating room, and placed on the lithotripsy table in supine position. Anesthesia was uneventfully begun. The patient's left nephrolithiasis was localized with biplanar fluoroscopy. Total of 3000 shocks were delivered to a cluster of stones in the lower kushal that were approximately 7 mm in size. The patient was then carefully and gently repositioned in the dorsal lithotomy position with all pressure points well padded. His genitalia were prepared and draped in usual sterile fashion. The 21-[place] cystourethroscope sheath with the visual obturator in place was atraumatically inserted into patient's urethra. It was guided down the unremarkable urethra, through the prostate bed, which was healed following the prior stone being stuck in it. We entered the patient's bladder where panendoscopy revealed no suspicious mucosal lesions, no stones, no diverticula. Normally positioned and configured ureteral orifices were identified. Ureteral catheter was used to cannulate each ureter, and retrograde ureteral pyelograms were performed. Interpretation of retrograde ureteropyelography: Contrast was instilled in retrograde fashion bilaterally. Both ureters were completely normal. There were no filling defects, there were no stones within the ureters. Calcifications noted on KUB were proven to not be within the ureters. There were multiple filling defects within the left intrarenal collecting system from the lithotripsy in the lower pole. The contrast injection on the right side obscured visualization of the stones that we saw on preoperative KUB. Patient's bladder was drained. The cystoscope was withdrawn, and he was uneventfully reversed from anesthesia and taken to recovery room in stable condition. There were no complications to the procedure. He tolerated the procedure well. Plans will be to return the patient to the operating room for a right ESWL. Job#: [id number]
== END | disposition home or self-care (01) ==
LOC: OR 11:49
PROVIDERS: ATTEND Urology
DX: N20.0 Calculus of kidney (principal)
CPT/HCPCS: 36415; 50590; 74018; 80048; J0461; J0696; J1100; J2250; J2405; J2704; J3490; Q9967

== ENCOUNTER → 2018-03-23 | Day surgery (SDC) | payer OTHER ==
[~2018-03-23] MED LIST changes: -ATROPINE SULFATE 1 MG/ML VIAL ONE; -BELLADONNA/OPIUM 60 MG SUPP PR ONE; -CEFTRIAXONE SOD 1 GM VIAL ONE; +CEFTRIAXONE SOD 1 GM/NS 50 ML 50 ML IV ONE; -GLYCOPYRROLATE INJ 1MG/ 5 ML SYR ONE; -IOPAMIDOL 610MG/1ML 300 MG/ML VIAL IV ONE; +LIDOCAINE HCL 2% LOCAL INJ 5 ML SDV VIAL INJ ONE; -ONDANSETRON HCL INJ 2 MG/ML VIAL ONE; +ONDANSETRON HCL INJ 2MG/ML 2ML 2 MG/ML VIAL ONE
[2018-03-23 07:21] LABS: BASOPHILS % 0.5 % (0.0-1.0); EOSINOPHILS # (AUTO) 0.2 (0.0-0.4); EOSINOPHILS % 2.5 % (0.0-6.0); HEMATOCRIT 56.9 % (38.2-49.6); HEMOGLOBIN 19.6 g/dL (14.0-18.0); LYMPHOCYTES # (AUTO) 1.4 (1.0-3.2); LYMPHOCYTES % 17.7 % (18.0-39.1); MEAN CORPUSCULAR HEMOGLOBIN 28.5 pg (28-32); MEAN CORPUSCULAR HGB CONC 34.4 g/dL (31-35); MEAN CORPUSCULAR VOLUME 82.7 fL (81-99); MONOCYTES # (AUTO) 0.9 (0.2-0.8); MONOCYTES % 11.7 % (4.4-11.3); NEUTROPHILS # (AUTO) 5.4 (2.1-6.9); NEUTROPHILS % 67.4 % (38.7-80.0); PLATELET COUNT 200 x10e3/uL (140-360); RED BLOOD COUNT 6.88 x10e6/uL (4.3-5.7)
[2018-03-23 07:35] LABS: ANION GAP 15.4 mmol/L (8-16); CALCIUM 9.1 mg/dL (8.4-10.2); CREATININE, SERUM 1.4 mg/dL (0.72-1.25); POTASSIUM 3.4 mmol/L (3.5-5.1)
--- NOTE | 2018-03-23 08:42 | Diagnostic Imaging Report ---
PROCEDURE:X-RAY ABDOMEN - KUB COMPARISON:Patients [facility], CT, CT ABDOMEN/PELVIS WO, 09/26/2017, 10:51. Patients [facility], DX, ABDOMEN-1VIEW (KUB), 01/19/2018, 12:46. INDICATIONS:PRE OPERATIVE FOR KIDNEY STONE SURGERY TODAY 03/23/18 FINDINGS: Several small right interpolar stones again noted, not significantly changed. Several lower pole left renal stones also present appearing less discrete. Number of stones appears decreased when compared to be more sensitive renal stone protocol CT. There are no dilated loops of bowel to suggest obstruction. There are no masses. There is no evidence of free air. No acute osseous abnormalities are present. CONCLUSION: Bilateral renal lithiasis. Cayden Soni D.O. Dictated by: Cayden Soni D.O. on 03/23/2018 at 8:53 Electronically approved by: Cayden Soni D.O. on 03/23/2018 at 8:53
[2018-03-23 10:10] VITALS: BP 123/81
--- NOTE | 2018-04-16 10:33 | Operative Report ---
DATE OF PROCEDURE: 03/23/2018 SURGEON: Flaquito Barrett MD PREOPERATIVE DIAGNOSIS: Bilateral nephrolithiasis. POSTOPERATIVE DIAGNOSIS: Bilateral nephrolithiasis. OPERATION PERFORMED: 1. Staged right-sided extracorporeal shockwave lithotripsy. 2. Supervision of fluoroscopy, no radiologist was present. ANESTHESIA: General. COMPLICATIONS: None. CLINICAL SUMMARY: Cody Brito is a 37-year-old man with extensive recurrent urolithiasis. He is brought for a staged procedure. He is aware of the risks of bleeding, infection, injury to adjacent structures, and need for additional procedures and elected to proceed. PROCEDURE IN DETAIL: Informed consent was verified. Cody Brito was properly identified, taken to the operating room, and placed on the lithotripsy table in supine position. Anesthesia was uneventfully begun. The patient's nephrolithiasis was localized with biplanar fluoroscopy. A total of 3000 shocks were delivered splitting them among the 7 mm right upper calyceal stone and the 6 mm right lower calyceal stone. The stones fragmentation was noted. The patient was then uneventfully reversed from anesthesia and taken to the recovery room in stable condition. Exclusive postoperative instructions were given. We will plan on returning the patient to the operating room for a left versus right ESWL. Flaquito Barrett MD [place]/MODL /[id number]
== END | disposition home or self-care (01) ==
LOC: OR 06:21
PROVIDERS: ATTEND Urology
DX: N20.0 Calculus of kidney (principal)
CPT/HCPCS: 36415; 50590; 74018; 80048; 83970; 84550; 85025; J0696; J1100; J2001; J2250; J2405; J2704

== ENCOUNTER → 2018-07-13 | Day surgery (SDC) | payer OTHER ==
--- NOTE | 2018-07-13 07:11 | Diagnostic Imaging Report ---
Exam: Abdominal film Clinical History: Kidney stones Comparison: 03/23/2018 DISCUSSION: When accounting for differences in technique, no appreciable interval change in the burden of scattered bilateral renal calculi measuring up to 4 mm projecting over the left lower pole and 3 mm projecting over the right upper pole. No suspicious calcifications project over the expected ureteral courses. Multiple pelvic phleboliths. Bowel gas pattern is nonobstructive. Regional skeletal structures are intact. IMPRESSION: Bilateral renal calculi grossly unchanged relative to 03/23/2018. Signed by: Dr. Rebel Gamble M.D. on 07/13/2018 7:08 AM
[2018-07-13 09:30] VITALS: BP 127/85
[2018-07-13 09:58] LABS: BLOOD UREA NITROGEN 18 mg/dL (7-26); BUN/CREATININE RATIO 14 (6-25); CARBON DIOXIDE 27 mmol/L (22-29); CHLORIDE 103 mmol/L (98-107); EST GLOMERULAR FILTRATION RATE > 60 ML/MIN (60-); GLUCOSE 100 mg/dL (74-118); SODIUM 138 mmol/L (136-145)
--- NOTE | 2018-08-29 06:01 | Operative Report ---
DATE OF PROCEDURE: 07/13/2018 SURGEON: Flaquito Barrett MD PREOPERATIVE DIAGNOSIS: Left nephrolithiasis. POSTOPERATIVE DIAGNOSIS: Left nephrolithiasis. OPERATION PERFORMED: 1. Staged left-sided extracorporeal shockwave lithotripsy. 2. Supervision of fluoroscopy, no radiologist present. ANESTHESIA: General. COMPLICATIONS: None. CLINICAL SUMMARY: Cody Brito is a 37-year-old man with recurrent nephrolithiasis. He is aware of the risks of bleeding, infection, injury to adjacent structures, need for additional procedures, and elected to proceed. OPERATIVE PROCEDURE IN DETAIL: Informed consent was verified. Cody Brito was properly identified, taken to the operating room, and placed on the lithotripsy table in supine position. Anesthesia was uneventfully begun. The patient's 5 mm left lower calyceal stone as well as 4 mm left upper calyceal stones were localized with biplanar fluoroscopy. A total of 3000 shocks were delivered, split between the two stones with excellent fragmentation of both regions. The patient was then uneventfully reversed from anesthesia and taken to recovery room in stable condition. There were no complications of the procedure. He tolerated the procedure well. Plans will be to return the patient to the operating room for another ESWL most likely on the right-hand side. Flaquito Barrett MD [place]/MODL /[id number]
== END | disposition home or self-care (01) ==
LOC: OR 05:48
PROVIDERS: ATTEND Urology
DX: N20.0 Calculus of kidney (principal); I10 Essential (primary) hypertension
CPT/HCPCS: 36415; 50590; 74018; 80048; 84550; J0696; J1100; J2001; J2250; J2405; J2704; J3010

== ENCOUNTER → 2019-11-04 | Outpatient (CLI) | payer OTHER ==
[~2019-11-04] MED LIST changes: -CEFTRIAXONE SOD 1 GM/NS 50 ML 50 ML IV ONE; -DEXAMETHASONE SOD PHOS INJ 4 MG/ML VIAL ONE; -FENTANYL CITRATE/PF 100MCG/2 ML INJ ONE; -LIDOCAINE HCL 2% LOCAL INJ 5 ML SDV VIAL INJ ONE; -MIDAZOLAM HCL 2 MG/2 ML VIAL ONE; +NORCO 5-325 TA1 EACH PO; -ONDANSETRON HCL INJ 2MG/ML 2ML 2 MG/ML VIAL ONE; -PROPOFOL IV EMULSION 10 MG/ML 20 ML VIAL ONE; -SEVOFLURANE INHAL SOLN 250 ML PEN BTL ONE
--- NOTE | 2019-11-04 13:30 | Diagnostic Imaging Report ---
Abdomen one view (KUB) INDICATION: ^[id number] ^1250 ^CALCULUS OF KIDNEY Comparison: 01/18/2019. Discussion: Similar to the prior exam there are multiple bilateral subcentimeter renal calculi. On the right the largest measures up to 6 mm in the upper pole. On the left the largest measures up to 3 mm in the interpolar region. Numerous additional smaller bilateral renal calculi are similar in size and distribution compared to prior exam. Digital is bowel loops are not dilated. Negative for acute osseous abnormality. Phleboliths are identified in the pelvis. IMPRESSION: Redemonstration of multiple bilateral subcentimeter renal calculi with grossly similar size and distribution compared to 01/18/2019. Signed by: Chris Luna MD on 11/04/2019 1:26 PM
== END ==
LOC: RAD 12:35
PROVIDERS: ATTEND Urology
DX: N20.0 Calculus of kidney (principal)
CPT/HCPCS: 74018

== ENCOUNTER → 2020-02-03 | Outpatient (CLI) | payer OTHER | LOC: RAD 08:01 | PROVIDERS: ATTEND Urology | DX: N20.0 Calculus of kidney (principal) | CPT/HCPCS: 74018 ==

== ENCOUNTER → 2020-04-17 | Day surgery (SDC) | payer OTHER, BC ==
[2020-04-15 07:55] LABS: BASOPHILS % 0.6 % (0.0-1.0); EOSINOPHILS # (AUTO) 0.1 (0.0-0.4); EOSINOPHILS % 2.2 % (0.0-6.0); HEMATOCRIT 52.8 % (38.2-49.6); LYMPHOCYTES # (AUTO) 1.5 (1.0-3.2); LYMPHOCYTES % 23.5 % (18.0-39.1); MEAN CORPUSCULAR HEMOGLOBIN 24.5 pg (28-32); MEAN CORPUSCULAR HGB CONC 32.2 g/dL (31-35); MONOCYTES # (AUTO) 0.5 (0.2-0.8); MONOCYTES % 8.6 % (4.4-11.3); NEUTROPHILS # (AUTO) 4.1 (2.1-6.9); NEUTROPHILS % 64.9 % (38.7-80.0); PLATELET COUNT 225 x10e3/uL (140-360); RED BLOOD COUNT 6.95 x10e6/uL (4.3-5.7); RED CELL DISTRIBUTION WIDTH 18.2 % (11.7-14.4)
[2020-04-15 08:20] LABS: ANION GAP 12.6 mmol/L (8-16); CALCIUM 9.1 mg/dL (8.4-10.2); CREATININE, SERUM 1.37 mg/dL (0.72-1.25); POTASSIUM 3.6 mmol/L (3.5-5.1)
[~2020-04-17] MED LIST changes: +CEFTRIAXONE SOD 1 GM VIAL ONE; +DEXAMETHASONE SOD PHOS INJ 4 MG/ML VIAL ONE; +LIDOCAINE HCL 2% LOCAL INJ 5 ML SDV VIAL INJ ONE; +MIDAZOLAM HCL 2 MG/2 ML VIAL ONE; +ONDANSETRON HCL INJ 2MG/ML 2ML 2 MG/ML VIAL ONE; +PROPOFOL IV EMULSION 10 MG/ML 20 ML VIAL ONE; +SEVOFLURANE INHAL SOLN 250 ML PEN BTL ONE; +SODIUM CHLORIDE 0.9% 50ML 50 ML ONE
[2020-04-17 09:20] VITALS: BP 119/78
== END | disposition home or self-care (01) ==
LOC: OR 05:23
PROVIDERS: ATTEND Urology
DX: N20.0 Calculus of kidney (principal); I10 Essential (primary) hypertension; Z01.810 Encounter for preprocedural cardiovascular examination; Z01.812 Encounter for preprocedural laboratory examination; Z01.818 Encounter for other preprocedural examination; Z20.822 Contact with and (suspected) exposure to COVID-19
CPT/HCPCS: 36415; 50590; 74018; 80048; 84550; 85025; 93005; J0696; J1100; J2001; J2405; J2704; U0002

== ENCOUNTER → 2020-07-24 | Day surgery (SDC) | payer BC ==
[2020-07-22 08:33] LABS: BASOPHILS % 0.7 % (0.0-1.0); EOSINOPHILS # (AUTO) 0.2 (0.0-0.4); EOSINOPHILS % 2.6 % (0.0-6.0); HEMATOCRIT 50.5 % (38.2-49.6); HEMOGLOBIN 16.5 g/dL (14.0-18.0); LYMPHOCYTES # (AUTO) 1.3 (1.0-3.2); LYMPHOCYTES % 22.8 % (18.0-39.1); MEAN CORPUSCULAR HEMOGLOBIN 26.1 pg (28-32); MEAN CORPUSCULAR HGB CONC 32.7 g/dL (31-35); MEAN CORPUSCULAR VOLUME 79.9 fL (81-99); MONOCYTES # (AUTO) 0.6 (0.2-0.8); MONOCYTES % 10.3 % (4.4-11.3); NEUTROPHILS # (AUTO) 3.7 (2.1-6.9); NEUTROPHILS % 63.3 % (38.7-80.0); PLATELET COUNT 233 x10e3/uL (140-360); RED BLOOD COUNT 6.32 x10e6/uL (4.3-5.7); RED CELL DISTRIBUTION WIDTH 15.9 % (11.7-14.4)
[2020-07-22 08:55] LABS: ALBUMIN/GLOBULIN RATIO 1.3 (0.8-2.0); ANION GAP 13.2 mmol/L (8-16); CREATININE, SERUM 1.47 mg/dL (0.72-1.25); POTASSIUM 3.2 mmol/L (3.5-5.1)
[~2020-07-24] MED LIST changes: +B&O 60MG R/S 60 MG SUPP PR ONE; +CEFTRIAXONE 1 GM VIAL ONE; -CEFTRIAXONE SOD 1 GM VIAL ONE; +IOPAMIDOL 300MG/ML 50ML INFUS..BTL IV ONE; +KETOROLAC TROMETHAMINE 30 MG/ML VIAL ONE; -MIDAZOLAM HCL 2 MG/2 ML VIAL ONE; +POVIDONE IODINE 0.05% 0.05 % ML PO ONE
[2020-07-24 07:46] LABS: ANION GAP 17.4 mmol/L (8-16); CALCIUM 8.8 mg/dL (8.4-10.2); CREATININE, SERUM 1.35 mg/dL (0.72-1.25); POTASSIUM 3.4 mmol/L (3.5-5.1)
[2020-07-24 11:00] VITALS: BP 129/87
== END | disposition home or self-care (01) ==
LOC: OR 07:26
PROVIDERS: ATTEND Urology
DX: N20.0 Calculus of kidney (principal); I12.9 Hypertensive chronic kidney disease with stage 1 through stage 4 chronic kidney disease, or unspecified chronic kidney disease; N18.9 Chronic kidney disease, unspecified; N39.0 Urinary tract infection, site not specified; N40.1 Benign prostatic hyperplasia with lower urinary tract symptoms; N13.8 Other obstructive and reflux uropathy; N32.89 Other specified disorders of bladder; E29.1 Testicular hypofunction; Z01.810 Encounter for preprocedural cardiovascular examination; Z01.812 Encounter for preprocedural laboratory examination; Z01.818 Encounter for other preprocedural examination; Z68.30 Body mass index [BMI] 30.0-30.9, adult; Z84.1 Family history of disorders of kidney and ureter
CPT/HCPCS: 36415 ×2; 50590; 74018; 80048; 80053; 84550; 85025; 93005; J0696; J1100; J1885; J2001; J2405; J2704; Q9967

== ENCOUNTER → 2020-08-26 | Outpatient (CLI) | payer BC ==
[~2020-08-26] MED LIST changes: -B&O 60MG R/S 60 MG SUPP PR ONE; -CEFTRIAXONE 1 GM VIAL ONE; -DEXAMETHASONE SOD PHOS INJ 4 MG/ML VIAL ONE; +FUROSEMIDE INJ 10 MG/ML 4 ML VIAL ONE; -IOPAMIDOL 300MG/ML 50ML INFUS..BTL IV ONE; -KETOROLAC TROMETHAMINE 30 MG/ML VIAL ONE; -LIDOCAINE HCL 2% LOCAL INJ 5 ML SDV VIAL INJ ONE; -ONDANSETRON HCL INJ 2MG/ML 2ML 2 MG/ML VIAL ONE; -POVIDONE IODINE 0.05% 0.05 % ML PO ONE; -PROPOFOL IV EMULSION 10 MG/ML 20 ML VIAL ONE; -SEVOFLURANE INHAL SOLN 250 ML PEN BTL ONE; -SODIUM CHLORIDE 0.9% 50ML 50 ML ONE
== END ==
LOC: NM 07:47
PROVIDERS: ATTEND Urology
DX: N18.9 Chronic kidney disease, unspecified (principal)
CPT/HCPCS: 78708; A9562; J1940

== ENCOUNTER → 2023-07-05 | Day surgery (SDC) | payer BC ==
[2023-07-03 11:00] LABS: BASOPHILS # (AUTO) 0.1 (0.0-0.1); BASOPHILS % 0.7 % (0.0-1.0); EOSINOPHILS # (AUTO) 0.1 (0.0-0.4); EOSINOPHILS % 1.3 % (0.0-6.0); HEMATOCRIT 51.6 % (38.2-49.6); HEMOGLOBIN 16.4 g/dL (14.0-18.0); LYMPHOCYTES # (AUTO) 1.1 (1.0-3.2); LYMPHOCYTES % 16.4 % (18.0-39.1); MEAN CORPUSCULAR HEMOGLOBIN 22.9 pg (28-32); MEAN CORPUSCULAR HGB CONC 31.8 g/dL (31-35); MONOCYTES # (AUTO) 0.5 (0.2-0.8); MONOCYTES % 7.8 % (4.4-11.3); NEUTROPHILS # (AUTO) 4.9 (2.1-6.9); NEUTROPHILS % 73.4 % (38.7-80.0); PLATELET COUNT 251 x10e3/uL (140-360); WHITE BLOOD COUNT 6.69 x10e3/uL (4.8-10.8)
[2023-07-03 11:02] LABS: RED BLOOD COUNT 7.17 x10e6/uL (4.3-5.7)
[2023-07-03 11:37] LABS: ALBUMIN 3.8 g/dL (3.5-5.0); ALBUMIN/GLOBULIN RATIO 1.1 (0.8-2.0); ANION GAP 14.1 mmol/L (8-16); BILIRUBIN,TOTAL 0.8 mg/dL (0.2-1.2); CALCIUM 9.1 mg/dL (8.4-10.2); CREATININE, SERUM 1.42 mg/dL (0.72-1.25); POTASSIUM 4.1 mmol/L (3.5-5.1); TOTAL PROTEIN 7.3 g/dL (6.5-8.1); URIC ACID 6.5 mg/dL (4.8-8.0)
[2023-07-04 12:12] LABS: CALCIUM 9.4 mg/dL (8.7-10.2)
[~2023-07-05] MED LIST changes: +ACETAMINOPHEN 1000 MG/100 ML 100 ML IV ONE; +DEXAMETHASONE SOD PHOS INJ 4 MG/ML SDV ONE; +FENTANYL CITRATE/PF 100MCG/2 ML INJ ONE; -FUROSEMIDE INJ 10 MG/ML 4 ML VIAL ONE; +IOPAMIDOL 610MG/1ML 300 MG/ML VIAL IV ONE; +LIDOCAINE HCL 2% LOCAL INJ 5 ML SDV VIAL INJ ONE; +ONDANSETRON HCL INJ 2MG/ML 2ML 2 MG/ML VIAL ONE; +PROPOFOL IV EMULSION 10 MG/ML 20 ML VIAL ONE; +SEVOFLURANE INHAL SOLN 250 ML PEN BTL ONE
[2023-07-05] MEDS: LACTATED RINGER'S 1,000 ML ONE (07:37)
[2023-07-05] MEDS: CEFTRIAXONE 1 GM VIAL ONE (07:37)
[2023-07-05] MEDS: SODIUM CHLORIDE 0.9% 100 ML ONE (07:38)
[2023-07-05 11:40] VITALS: TEMP 97.8
[2023-07-05 12:20] VITALS: BP 142/86; PULSE 70; RESP 16; O2SAT 98
== END | disposition home or self-care (01) ==
LOC: OR 06:44
PROVIDERS: ATTEND Urology
DX: N20.0 Calculus of kidney (principal); Z01.812 Encounter for preprocedural laboratory examination; Z01.818 Encounter for other preprocedural examination; Z79.899 Other long term (current) drug therapy
CPT/HCPCS: 36415; 50590; 74018; 80053; 83970; 84550; 85025; J0131; J0696; J1100; J2001; J2405; J2704; J3010; J7050; J7121

== ENCOUNTER → 2023-08-11 | Day surgery (SDC) | payer BC ==
[2023-08-09 11:30] LABS: BASOPHILS # (AUTO) 0.1 (0.0-0.1); BASOPHILS % 0.8 % (0.0-1.0); EOSINOPHILS # (AUTO) 0.1 (0.0-0.4); EOSINOPHILS % 1.9 % (0.0-6.0); HEMATOCRIT 49.4 % (38.2-49.6); HEMOGLOBIN 15.8 g/dL (14.0-18.0); LYMPHOCYTES # (AUTO) 1.1 (1.0-3.2); LYMPHOCYTES % 16.9 % (18.0-39.1); MEAN CORPUSCULAR HEMOGLOBIN 23.4 pg (28-32); MEAN CORPUSCULAR VOLUME 73.2 fL (81-99); MONOCYTES # (AUTO) 0.5 (0.2-0.8); MONOCYTES % 8.7 % (4.4-11.3); NEUTROPHILS # (AUTO) 4.4 (2.1-6.9); NEUTROPHILS % 71.4 % (38.7-80.0); PLATELET COUNT 189 x10e3/uL (140-360); RED BLOOD COUNT 6.75 x10e6/uL (4.3-5.7); RED CELL DISTRIBUTION WIDTH 19.8 % (11.7-14.4); WHITE BLOOD COUNT 6.22 x10e3/uL (4.8-10.8)
[2023-08-09 11:51] LABS: ALBUMIN 3.8 g/dL (3.5-5.0); ALBUMIN/GLOBULIN RATIO 1.3 (0.8-2.0); ANION GAP 11.9 mmol/L (8-16); BILIRUBIN,TOTAL 0.8 mg/dL (0.2-1.2); CALCIUM 8.9 mg/dL (8.4-10.2); CREATININE, SERUM 1.33 mg/dL (0.72-1.25); POTASSIUM 3.9 mmol/L (3.5-5.1); TOTAL PROTEIN 6.7 g/dL (6.5-8.1); URIC ACID 7.2 mg/dL (4.8-8.0)
[~2023-08-11] MED LIST changes: -ACETAMINOPHEN 1000 MG/100 ML 100 ML IV ONE; +EPHEDRINE SULFATE INJ 50 MG/ML VIAL ONE; +MIDAZOLAM HCL 2 MG/2 ML VIAL ONE; -SEVOFLURANE INHAL SOLN 250 ML PEN BTL ONE
[2023-08-11] MEDS: CEFTRIAXONE 1 GM VIAL ONE (10:40)
[2023-08-11] MEDS: LACTATED RINGER'S 1,000 ML ONE (10:40)
[2023-08-11] MEDS: HYDRALAZINE HCL 20 MG/ML VIAL ONE (10:41)
[2023-08-11 11:13] LABS: CALCIUM 8.9 mg/dL (8.7-10.2)
[2023-08-11 11:22] VITALS: TEMP 98
[2023-08-11 12:25] VITALS: BP 159/91; PULSE 90; RESP 18; O2SAT 98
== END | disposition home or self-care (01) ==
LOC: OR 07:57
PROVIDERS: ATTEND Urology
DX: N20.0 Calculus of kidney (principal); N18.9 Chronic kidney disease, unspecified; Z01.810 Encounter for preprocedural cardiovascular examination; Z01.812 Encounter for preprocedural laboratory examination; Z01.818 Encounter for other preprocedural examination; Z79.899 Other long term (current) drug therapy
CPT/HCPCS: 36415; 50590; 74018; 80053; 83970; 84550; 85025; 93005; J0696; J1100; J2001; J2250; J2405; J2704; J3010; J7121; J0360

== ENCOUNTER → 2023-09-13 | Day surgery (SDC) | payer BC ==
[~2023-09-13] MED LIST changes: +ACETAMINOPHEN/CODEINE 300MG - 30MG TAB ONE; +CEFTRIAXONE 1 GM VIAL ONE; -DEXAMETHASONE SOD PHOS INJ 4 MG/ML SDV ONE; -EPHEDRINE SULFATE INJ 50 MG/ML VIAL ONE; +LACTATED RINGER'S 1,000 ML ONE; +PHENAZOPYRIDINE HCL 100 MG TAB ONE; +SEVOFLURANE INHAL SOLN 250 ML PEN BTL ONE
[2023-09-13] MEDS: PHENAZOPYRIDINE HCL 100 MG TAB PO ONE (14:15)
[2023-09-13 14:35] VITALS: BP 138/76; RESP 16; O2SAT 100
[2023-09-13] MEDS: ACETAMINOPHEN/CODEINE 300MG - 30MG TAB PO ONE (14:38)
[2023-09-15 10:15] LABS: CALCIUM 8.7 mg/dL (8.7-10.2)
== END | disposition home or self-care (01) ==
LOC: OR 07:09
PROVIDERS: ATTEND Urology
DX: N20.0 Calculus of kidney (principal); N40.0 Benign prostatic hyperplasia without lower urinary tract symptoms; N18.9 Chronic kidney disease, unspecified; N32.89 Other specified disorders of bladder; N28.89 Other specified disorders of kidney and ureter; Z79.899 Other long term (current) drug therapy
CPT/HCPCS: 36415; 52332; 52352; 74018; 74420; 83970; 84550; 88300; C1769; C2617; J0696; J2001; J2250; J2405; J2704; J3010; J7121; Q9967

== ENCOUNTER → 2023-09-27 | Day surgery (SDC) | payer BC ==
[~2023-09-27] MED LIST changes: -ACETAMINOPHEN/CODEINE 300MG - 30MG TAB ONE; -CEFTRIAXONE 1 GM VIAL ONE; +DEXAMETHASONE SOD PHOS INJ 4 MG/ML SDV ONE; -LACTATED RINGER'S 1,000 ML ONE; -PHENAZOPYRIDINE HCL 100 MG TAB ONE
[2023-09-27 09:02] LABS: BASOPHILS % 0.8 % (0.0-1.0); EOSINOPHILS # (AUTO) 0.2 (0.0-0.4); EOSINOPHILS % 4.4 % (0.0-6.0); HEMATOCRIT 52.9 % (38.2-49.6); HEMOGLOBIN 16.2 g/dL (14.0-18.0); LYMPHOCYTES % 19.5 % (18.0-39.1); MEAN CORPUSCULAR HEMOGLOBIN 23.7 pg (28-32); MEAN CORPUSCULAR HGB CONC 30.6 g/dL (31-35); MEAN CORPUSCULAR VOLUME 77.3 fL (81-99); MONOCYTES # (AUTO) 0.5 (0.2-0.8); MONOCYTES % 9.4 % (4.4-11.3); NEUTROPHILS # (AUTO) 3.3 (2.1-6.9); NEUTROPHILS % 65.3 % (38.7-80.0); PLATELET COUNT 223 x10e3/uL (140-360); RED BLOOD COUNT 6.84 x10e6/uL (4.3-5.7); RED CELL DISTRIBUTION WIDTH 19.7 % (11.7-14.4); WHITE BLOOD COUNT 4.98 x10e3/uL (4.8-10.8)
[2023-09-27] MEDS: CEFTRIAXONE 1 GM VIAL ONE (09:13)
[2023-09-27] MEDS: LACTATED RINGER'S 1,000 ML ONE (09:13)
[2023-09-27] MEDS: GENTAMICIN 80MG/NS 100 ML 100 ML IV ONE (09:14)
[2023-09-27 09:23] LABS: ANION GAP 14.8 mmol/L (8-16); CALCIUM 9.1 mg/dL (8.4-10.2); CREATININE, SERUM 1.52 mg/dL (0.72-1.25); POTASSIUM 3.8 mmol/L (3.5-5.1); URIC ACID 6.4 mg/dL (4.8-8.0)
[2023-09-27 12:15] VITALS: BP 132/89; PULSE 71; RESP 18; O2SAT 99
== END | disposition home or self-care (01) ==
LOC: OR 08:38
PROVIDERS: ATTEND Urology
DX: N20.0 Calculus of kidney (principal); Z46.6 Encounter for fitting and adjustment of urinary device; N40.0 Benign prostatic hyperplasia without lower urinary tract symptoms; I12.9 Hypertensive chronic kidney disease with stage 1 through stage 4 chronic kidney disease, or unspecified chronic kidney disease; N18.9 Chronic kidney disease, unspecified; E66.01 Morbid (severe) obesity due to excess calories; Z79.899 Other long term (current) drug therapy
CPT/HCPCS: 36415; 52352; 74420; 80048; 84550; 85025; 88300; C1766; C1769; J0696; J1100; J1580; J2001; J2250; J2405; J2704; J3010; J7121; Q9967